=== PATIENT | male | born 1945 | race Two or more races ===

== ENCOUNTER 2018-10-07 20:44 | Inpatient (IN) | payer OTHER ==
[~2018-10-07] VITALS: Ht 172.7 cm; Wt 90.7 kg
[2018-10-07] MEDS ORDERED: LOSARTAN POTAS100 MG (20:58)
[2018-10-07] MEDS ORDERED: LASIX40 MG (20:59)
[2018-10-07] MEDS ORDERED: FORTAMET1000 MG (20:59)
[2018-10-07] MEDS ORDERED: PLAVIX75 MG (20:59)
[2018-10-07] MEDS ORDERED: ASA81 MG (20:59)
[2018-10-12] MEDS ORDERED: CIPRO500 MG PO (14:29)
[2018-10-12] MEDS ORDERED: FLAGYL500MG PO (14:30)
== END 2018-10-12 14:50 | disposition home or self-care (01) | DRG 392 ==
LOC: ER 20:44 → MEDI 10-08 08:45
PROVIDERS: ADMIT Internal Medicine
DX: K57.32 Diverticulitis of large intestine without perforation or abscess without bleeding (principal); N20.1 Calculus of ureter; N17.8 Other acute kidney failure; I25.10 Atherosclerotic heart disease of native coronary artery without angina pectoris; Z79.4 Long term (current) use of insulin; E78.49 Other hyperlipidemia; Z88.6 Allergy status to analgesic agent; N28.1 Cyst of kidney, acquired; I12.9 Hypertensive chronic kidney disease with stage 1 through stage 4 chronic kidney disease, or unspecified chronic kidney disease; E11.22 Type 2 diabetes mellitus with diabetic chronic kidney disease; N18.2 Chronic kidney disease, stage 2 (mild)

== ENCOUNTER 2020-01-10 10:25 | Emergency (ER) | payer OTHER ==
[~2020-01-10] VITALS: Ht 172.7 cm; Wt 91.2 kg
[~2020-01-10 10:25] MED LIST: ASA81 MG; CIPRO500 MG PO; FLAGYL500MG PO; FORTAMET1000 MG; LASIX40 MG; LOSARTAN POTAS100 MG; PLAVIX75 MG
[2020-01-10] MEDS ORDERED: [UNRECOGNIZED DRUG - OTHER] (10:34)
== END 2020-01-10 13:42 | disposition home or self-care (01) ==
LOC: ER 10:25
DX: N30.81 Other cystitis with hematuria (principal); E11.9 Type 2 diabetes mellitus without complications; I10 Essential (primary) hypertension; Z20.828 Contact with and (suspected) exposure to other viral communicable diseases

== ENCOUNTER 2020-02-18 10:22 | Emergency (ER) | payer OTHER ==
[~2020-02-18] VITALS: Ht 172.7 cm; Wt 86.2 kg
[~2020-02-18 10:22] MED LIST changes: +[UNRECOGNIZED DRUG - OTHER]
[2020-02-18] MEDS ORDERED: ISOSORBIDE DINI30 MG (10:59)
[2020-02-18] MEDS ORDERED: GABAPENTIN300 M2 (11:00)
[2020-02-18] MEDS ORDERED: SINGULAIR 10MG10 MG (11:00)
[2020-02-18] MEDS ORDERED: TAMS0.4C (11:01)
== END 2020-02-18 18:46 | disposition home or self-care (01) ==
LOC: ER 10:22
DX: K57.32 Diverticulitis of large intestine without perforation or abscess without bleeding (principal); R10.32 Left lower quadrant pain; Z03.818 Encounter for observation for suspected exposure to other biological agents ruled out

== ENCOUNTER 2020-03-13 08:30 | Emergency (ER) | payer OTHER ==
[~2020-03-13] VITALS: Ht 172.7 cm; Wt 89.4 kg
[~2020-03-13 08:30] MED LIST changes: +GABAPENTIN300 M2; +ISOSORBIDE DINI30 MG; +SINGULAIR 10MG10 MG; +TAMS0.4C
== END 2020-03-13 10:15 ==
LOC: ER 08:30
DX: M10.071 Idiopathic gout, right ankle and foot (principal)

== ENCOUNTER 2020-05-24 09:07 | Emergency (ER) | payer OTHER ==
[~2020-05-24] VITALS: Ht 172.7 cm; Wt 87.1 kg
== END 2020-05-24 16:22 | disposition home or self-care (01) ==
LOC: ER 09:07 → CPU-OBS 10:03 → ER 16:22
DX: M25.512 Pain in left shoulder (principal); R07.89 Other chest pain; M54.2 Cervicalgia; Z03.818 Encounter for observation for suspected exposure to other biological agents ruled out
CPT/HCPCS: G0378; G0379; 93005